=== PATIENT | female | born 1980 | race Two or more races ===

== ENCOUNTER 2018-08-16 15:50 | Emergency (ER) | payer MEDICAID ==
--- NOTE | 2018-08-16 18:42 | EDPHY ---
H & P Stated Complaint: couygh, fever, KAYE Time Seen by Provider: 08/16/18 17:06 HPI/ROS: CHIEF COMPLAINT: Cough, fever, flu-like symptoms HISTORY OF PRESENT ILLNESS: The patient presents the ED with a 2 day history of cough, fever like symptoms. The patient denies any vomiting or diarrhea. She reports no prior history of lung disease. She did have an upper respiratory infection several weeks ago which resolved. The patient denies any additional acute complaints. She denies significant past medical history. REVIEW OF SYSTEMS: A comprehensive 10 point review of systems is otherwise negative aside from elements mentioned in the history of present illness. Source: Patient Exam Limitations: No limitations - Personal History Current Tetanus/Diphtheria Vaccine: Yes Current Tetanus Diphtheria and Acellular Pertussis (TDAP): Yes - Medical/Surgical History Hx Asthma: No Hx Chronic Respiratory Disease: No Hx Diabetes: No Hx Cardiac Disease: No Hx Renal Disease: No Hx Cirrhosis: No Hx Alcoholism: No Hx HIV/AIDS: No Hx Splenectomy or Spleen Trauma: No Other PMH: Tubal lig - Social History Smoking Status: Never smoked - Physical Exam Exam: General Appearance: Alert, no distress Eyes: Pupils equal and round no pallor or injection ENT, Mouth: Mucous membranes moist Respiratory: There are no retractions, lungs are clear to auscultation Cardiovascular: Regular rate and rhythm Gastrointestinal: Abdomen is soft and nontender, no masses, bowel sounds normal Neurological: A&O, normal motor function, normal sensory exam, normal cranial nerves Skin: Warm and dry, no rashes Musculoskeletal: Neck is supple nontender Extremities: symmetrical, full range of motion Constitutional: Initial Vital Signs Temperature (C) 37 C 08/16/18 16:44 Heart Rate 69 08/16/18 16:44 Respiratory Rate 16 08/16/18 16:44 Blood Pressure 108/63 08/16/18 16:44 O2 Sat (%) 94 08/16/18 16:44 O2 Delivery Mode Room Air Allergies/Adverse Reactions: No Known Allergies Allergy (Verified 08/16/18 16:44) Home Medications: Medication Instructions Recorded Oseltamivir Phosphate [Tamiflu] 75 mg PO BID #10 cap 08/16/18 Medical Decision Making - Diagnostics Imaging Results: Chest x-ray PA lateral: Images reviewed by myself. Impression negative for focal pneumonia. ED Course/Re-evaluation: The patient presents to the ED with an influenza like illness which has been present for the past 2 days. Chest x-ray demonstrates no evidence of pneumonia. The patient's vital signs are stable. She has no evidence of septic physiology. The patient will be treated with Tamiflu. She is discharged home with customary aftercare instructions. Differential Diagnosis: Differential diagnosis considered includes asthma, bronchitis, pneumonia, influenza Departure - Departure Disposition: Home, Routine, Self-Care Clinical Impression: Influenza Condition: Good Instructions: Influenza (ED) Additional Instructions: 1. Take Tamiflu as directed for influenza infection. 2. Take Ibuprofen or Motrin 600 mg by mouth three times a day. 3. Tylenol 650 mg every 6 hr for pain and fever. 4. Please follow-up with your primary care provider for a recheck in the coming week. 5. Your chest x-ray demonstrates no evidence of an obvious pneumonia. Referrals: Nika Daniel MD [Primary Care Provider] - As per Instructions
[2018-08-16 18:53] VITALS: BP 116/77
== END 2018-08-16 18:53 | disposition home or self-care (01) ==
DX: J10.1 Influenza due to other identified influenza virus with other respiratory manifestations (principal)